=== PATIENT | male | born 1955 | race Caucasian/White ===

== ENCOUNTER 2021-01-30 11:30 | Outpatient (CLI) | payer MEDICAID, SELFPAY ==
[2021-01-30 13:53] LABS: Absolute Basophil Count 0.04 10^3/uL (0.0-0.2); Absolute Eosinophil Count 0.02 10^3/uL (0.0-0.7); Absolute Lymphocyte Count 1.16 10^3/uL (1.2-3.4); Absolute Monocyte Count 0.78 10^3/uL (0.1-0.8); Absolute Neutrophil Count 1.14 10^3/uL (1.2-6.7); Basophils % 1.3; Eosinophils % 0.6; HCT 43.7 % (40.0-50.0); HGB 14.8 g/dL (13.5-17.5); Lymphocytes % 36.9; MCH 28.1 pg (27.0-33.0); MCHC 33.9 % (32.0-36.0); MCV 83.1 fL (80-95); MPV 10.5 fL (8.0-11.0); Monocytes % 24.8; Neutrophils % 36.4; Nucleated RBC 0 %; Platelet Count 118 10^3/uL (130-400); RBC 5.26 10^6/uL (4.36-5.78); RDW 12.9 % (11.8-14.1); RDW-SD 38.8 fL; WBC 3.14 10^3/uL (4.4-10.8)
== END 2021-01-30 11:31 | disposition home or self-care (01) ==
LOC: LBO 11:33
PROVIDERS: Visit Provider Internal Medicine
DX: D69.6 Thrombocytopenia, unspecified (principal); M79.10 Myalgia, unspecified site; D70.9 Neutropenia, unspecified
CPT/HCPCS: 36415; 85025

== ENCOUNTER 2021-04-18 02:20 | Outpatient (CLI) | payer MEDICAID, SELFPAY ==
--- OUTSIDE RECORDS SUMMARY | 2021-04-18 02:23 | XMS_ITS ---
:1955 Author Care Team Providers Name Role Phone MAHENDRA DANELLE KUO Primary Care Provider [phone] MARCELO DOTSON MD [place] [phone] Allergies Code Code System Name Reaction Severity Status Onset NKDA ? Medications Name Status Start Date Stop Date ? ? amoxicillin 875 mg tablet Completed 04/24/20112010 1 (one) Tablet: two times daily cephalexin 500 mg tablet Completed 09/17/2016 017 1 (one) Tablet Tablet: four times daily chlorthalidone 25 mg tablet Completed ? 06/2020 Take 1 tablet every day by oral route for 90 days. cyclobenzaprine 10 mg tablet Completed ? dexamethasone 4 mg tablet Completed ? 2020 Take 10 tablets every day by oral route. Flovent HFA 110 mcg/actuation aerosol inhaler Completed 02/22/2014 2 (two) Aerosol: bid - twice daily gabapentin 300 mg capsule Completed ? 2019 Take 1 capsule 3 times a day by oral route as directed for 30 d ays. hydrocodone 5 mg-acetaminophen 325 mg tablet Completed 07/201610/29/2016 1 (one) Tablet Tablet: every four to six hours as needed indomethacin 25 mg capsule Completed 04/27/201501/17 1 (one) Capsule: three times daily, as needed lorazepam 1 mg tablet Completed ? 01/18/2020 Take 1 tablet every day by oral route as needed for 7 days. metoprolol tartrate 25 mg tablet Completed ? 01/18/2020 Take 2 tablets twice a day by oral route for 30 days. Thisis to help prevent migraines- not t o treat migraines. Should be taken every day regardless of migraine being present or not. naproxen 500 mg tablet Completed ? 0 Take 1 tablet twice a day by oral route for 30 days. Neulasta Active ? Not available prednisone 20 mg tablet Completed 01/18/2016 01/25/20 16 3 (three) Tablet: daily prednisone 50 mg tablet Completed ? 12/30/19 19 Take 1 tablet every day by oral route for 5 days. Rituxan Active ? Not available sumatriptan Completed ? 08/15/2020 sumatriptan 85 mg-naproxen 500 Completed ? 0 12/14/2019 mg tablet tramadol 50 mg tablet Completed 10/29/2016 05/21/2017 1-2 Tablet: q 6 hours prn pain Problems Name Status Onset Date Source ? Headache Active 12/21/2019 ? Thrombocytopenic Disorder Active 08/15/2020 ? Neutropenia Active 08/15/2020 ? Obesity Active ? History Acute Frontal Sinusitis Unknown ? History Acute Laryngitis Unknown ? History Epidermoid Cyst of Skin Active ? History Arthropathy Active ? History Backache Unknown ? History Lack of Energy Unknown ? History Dyspnea Unknown ? History Elevated Blood-pressure Reading Active ? History without Diagnosis of Hypertension Loan Foreclosure Status Unknown ? History Head and Neck Swelling Unknown ? History Pain in Right Foot Active ? History Long-term Current Use of Drug Therapy Unknown ? History Procedure by Method Unknown ? History Knee Pain Active ? History Procedures Date Name Performed by ? ? Knee Surgery Information not rohini erickson Notes: left 06/30/2018 MRI, Lumbar Spine, W/o Contrast [facility] [address] [facility] [address] [place] [phone] (Work Place) 01/24/2020 MRI, Cervical Spine, W/o Contrast [facility] [address] [facility] [address] [place] [phone] (Work Place) Results Lab Results Date Name Specimen Result Interpretation Description Value Range Status Address ? 02/13/2021 HbA1C BLD ? Ha1C 5.3 % 4.0-6.0 % Final [facility] (Hemoglobin Count ry a1C), Blood Hospi ernie Lab (Internal) : [address] 02/13/2021 BMP, Serum or S ? g/r 102 74-106 Final [facility] Plasma mg/dL mg/dL [facility] L ab (Internal) : [address] ? ? S High Bun 21 mg/dL 7-18 Final [facility] mg/dL [facility] L ab (Internal) : [address] ? ? S ? Crea 0.9 0.7-1.3 Final [facility] mg/dL mg/dL [facility] ([facility]) : [address] ? ? S ? Ca 8.9 8.5-10.1 Final [facility] mg/dL mg/dL [facility] (Internal) : [address] t ? ? S ? Na 142 136-145 Final [facility] mmol/L mmol/L [facility] (Internal) : [address] t ? ? S ? K 4.5 3.5-5.1 Final [facility] mmol/L mmol/L [facility] (Internal) : [address] t ? ? S ? Cl 106 98-107 Final [facility] mmol/l mmol/l [facility] (Internal) : [address] ? ? S ? Tco2 27.1 21.0-32.0 Final [facility] mmol/L mmol/L [facility] (Internal) : [address] t 02/13/2021 Glucose, S ? Fbs 102 74-106 Final Nort h Fasting, mg/dL mg/dL [facility] Serum/plasma Hosp ital Lab (Internal) : [address] 02/13/2021 Glucose S ? Gluc, 2 111 ? Final [place] [facility] Tolerance Test, hr Pp mg/dL C ountry Postprandial, Hos pital Lab 2-Hour (Internal) : [address] t 01/02/2021 CBC W/ Auto Diff BLD ? Wbc 7.1 5.0-10.0 F inal [place] 10*3/uL 10*3/uL [facility] (Internal) : [address] t ? ? BLD ? Rbc 5.11 4.60-6.00 Final [facility] 10*6/uL 10*6/uL [facility] (Internal) : [address] t ? ? BLD ? Hgb 14.7 14.0-18.0 Final [place] g/dL g/dL [facility] (Internal) : [address] ? ? BLD ? Hct 44.8 % 41.0-51.0 Final [facility] % [facility] (Internal) : [address] ? ? BLD ? Mcv 87.7 fL 80.0-96.0 Final [facility] L ab (Internal) : [address] ? ? BLD ? Mch 28.8 pg 26.0-32.0 Final [place] pg [facility] L ab (Internal) : [address] ? ? BLD ? Mchc 32.8 31.0-35.0 Final [place] g/dL g/dL [facility] L ab (Internal) : [address] ? ? BLD ? Rdw 13.5 % 11.5-14.5 Final [facility] L ab (Internal) : [address] ? ? BLD ? Plt 241 130-450 Final [place] 10*3/uL 10*3/uL [facility] L ab (Internal) : [address] 01/02/2021 Differential, BLD ? Polys 65 % 40-75 % Final [facility], Blood [facility] L ab (Internal) : [address] ? ? BLD ? Bands 0 % 0-5 % Final [facility] L ab (Internal) : [address] ? ? BLD Low Lymphs 18 % 20-50 % Final [facility] L ab (Internal) : [address] ? ? BLD High [place] 16 % 2-10 % Final [facility] L ab (Internal) : [address] ? ? BLD ? Eos 1 % 0-6 % Final [facility] L ab (Internal) : [address] ? ? BLD ? Baso 0 % 0-1 % Final [facility] L ab (Internal) : [address] ? ? BLD ? Atyp 0 % ? Final [facility] L ab (Internal) : [address] ? ? BLD ? Plts, adequate adequate Final [place] [facility] [address] ? ? BLD ? RBC normal normal Final [place] [facility] (Internal) : [address] 01/02/2021 Neutrophil BLD ? Anc-manu 4.60 ? Final [place] Count, Absolute al 10*3/uL [facility] (Anc), Blood Hosp ital Lab (Internal) : [address] 01/02/2021 Nlr-manual BLD High Nlr - 3.61 0.00-3.20 Final [facility] L ab (Internal) : [address] 11/13/2020 CBC W/ Auto Diff BLD Low Wbc 2.2 5.0-10.0 F inal [place] 10*3/uL 10*3/uL [facility] L ab (Internal) : [address] t ? ? BLD ? Rbc 5.26 4.60-6.00 Final [place] 10*6/uL 10*6/uL [facility] L ab (Internal) : [address] ? ? BLD ? Hgb 14.8 14.0-18.0 Final [place] g/dL g/dL [facility] (Internal) : [address] ? ? BLD ? Hct 44.0 % 41.0-51.0 Final [facility] : [address] ? ? BLD ? Mcv 83.7 fL 80.0-96.0 Final [facility] L ab (Internal) : [address] t ? ? BLD ? Mch 28.1 pg 26.0-32.0 Final [facility] L ab (Internal) : [address] ? ? BLD ? Mchc 33.6 31.0-35.0 Final [place] g/dL g/dL [facility] L ab (Internal) : [address] ? ? BLD ? Rdw 11.9 % 11.5-14.5 Final [facility] ([facility] : [address] ? ? BLD Low Plt 126 130-450 Final [place] 10*3/uL 10*3/uL [facility] L ab (Internal) : [address] 11/13/2020 CMP, Serum or S High g/r 117 74-106 Final [place] Plasma mg/dL mg/dL [facility] L ab (Internal) : [address] ? ? S ? Bun 17 mg/dL 9-20 Final [facility] mg/dL [facility] ([facility]) : [address] t ? ? S ? Crea 0.90 0.66-1.25 Final [place] mg/dL mg/dL [facility] (Internal) : [address] t ? ? S ? Ca 9.6 8.4-10.2 Final [place] mg/dL mg/dL [facility] (Internal) : [address] t ? ? S ? Na 138 137-145 Final [place] mmol/L mmol/L [facility] (Internal) : [address] t ? ? S ? K 4.2 3.5-5.1 Final [place] mmol/L mmol/L [facility] (Internal) : [address] t ? ? S ? Cl 104 98-107 Final [place] mmol/L mmol/L [facility] (Internal) : [address] t ? ? S ? Tco2 25.0 22.0-30.0 Final [place] mmol/L mmol/L [facility] (Internal) : [address] t ? ? S ? Tp 7.3 g/dL 6.3-8.2 Final [facility] g/dL [facility] (Internal) : [address] t ? ? S ? Alb 3.9 g/dL 3.5-5.0 Final [facility] g/dL [facility] (Internal) : [address] t ? ? S ? Tbil 0.8 0.2-1.3 Final [place] mg/dL mg/dL [facility] (Internal) : [address] ? ? S ? Alp 60 U/L 38-126 Final [facility] U/L [facility] (Internal) : [address] ? ? S Low Alt 18 U/L 21-72 U/L Final [facility] (Sgpt) [facility] (Internal) : [address] ? ? S ? Ast 23 U/L 17-59 U/L Final [facility] (Sgot) [facility] (Internal) : [address] 11/13/2020 Lipase, Serum or S ? Lip 84 U/L 23-300 Fin [facility] Plasma U/L [facility] L ab (Internal) : [address] t 11/13/2020 Differential, BLD Low Polys 5 % 40-75 % Final [facility] Blood [facility] L ab (Internal) : [address] t ? ? BLD ? Bands 2 % 0-5 % Final [facility] L ab (Internal) : [address] t ? ? BLD ? Lymphs 36 % 20-50 % Final [facility] L ab (Internal) : [address] ? ? BLD High [place] 54 % 2-10 % Final [facility] L ab (Internal) : [address] ? ? BLD ? Eos 0 % 0-6 % Final [facility] L ab (Internal) : [address] ? ? BLD High Baso 2 % 0-1 % Final [facility] L ab (Internal) : [address] ? ? BLD ? Atyp 1 % ? Final [facility] L ab (Internal) : [address] ? ? BLD ABNORM Plts, low adequate Final [facility] L ab (Internal) : [address] ? ? BLD ? RBC normal normal [facility] L ab (Internal[facility] : [address] 11/13/2020 Nlr-manual BLD ? Nlr - 0.19 0.00-3.20 Final [facility] L ab (Internal) : [address] t 11/13/2020 Neutrophil BLD CRITIC Anc-manu 0.15 ? Final [place] Count, Absolute AL LOW al 10*3/uL [facility] (Anc), Blood Hosp ital Lab (Internal) : [address] t 11/13/2020 Venipuncture Blood ? Location Right ? ? P_nc Primary venous Antecubi Care ernie [place]: [address], [place] ? ? Blood ? Needle 21g ? ? P_nc Prim mario venous Vacutain Care er [place]: [address], [place] ? ? Blood ? Number 1 ? ? P_nc Prim mario venous of Care Attempts [place]: [address] [facility], [place] ? ? Blood ? Successf Yes ? ? P_nc Pr imary venous ul Care [place]: [address] [facility], [place] ? ? Blood ? Dressing Pressure ? ? P_nc Primary venous Band-aid Care Applied [place]: [address] [facility], [place] 08/22/2020 CBC W/ Auto Diff BLD ? Wbc 9.1 5.0-10.0 F inal [place] 10*3/uL 10*3/uL [facility] L ab (Internal) : [address] ? ? BLD ? Rbc 5.21 4.60-6.00 Final [place] 10*6/uL 10*6/uL [facility] L ab (Internal) : [address] t ? ? BLD ? Hgb 15.1 14.0-18.0 Final [place] g/dL g/dL [facility] L ab (Internal) : [address] t ? ? BLD ? Hct 45.9 % 41.0-51.0 Final [facility] : [address] t ? ? BLD ? Mcv 88.1 fL 80.0-96.0 Final [facility] L ab (Internal) : [address] ? ? BLD ? Mch 29.0 pg 26.0-32.0 Final [facility] L ab (Internal) : [address] t ? ? BLD ? Mchc 32.9 31.0-35.0 Final [place] g/dL g/dL [facility] L ab (Internal) : [address] t ? ? BLD ? Rdw 12.9 % 11.5-14.5 Final [facility] (Internal) : [address] t ? ? BLD Low Plt 86 130-450 Final [place] 10*3/uL 10*3/uL [facility] L ab (Internal) : [address] ? ? BLD ? Anc 5.92 ? Final [place] 10*3/uL [facility] L ab (Internal) : [address] t ? ? BLD High Nlr 3.29 0.00-3.20 Final [facility] L ab (Internal) : [address] t ? ? BLD ? Neutro 65.2 % 40.0-75.0 Final [facility] ([facility]) : [address] ? ? BLD Low Lymph 19.8 % 20.0-50.0 Final [facility] (Internal) : [address] ? ? BLD High [place] 11.5 % 2.0-10.0 Final [facility] (Internal) : [address] ? ? BLD ? Eos 2.5 % 1.0-6.0 % Final [facility] L ab (Internal) : [address] t ? ? BLD ? Baso 0.4 % 0.0-1.0 % Final [facility] L ab (Internal) : [address] ? ? BLD ? Ig 0.6 % 0.0-0.9 % Final [facility] L ab (Internal) : [address] t 08/22/2020 HbA1C BLD ? Ha1C 5.3 % 4.0-6.0 % Final [facility] (Hemoglobin Count ry a1C), Blood Hospi ernie Lab (Internal) : [address] 08/08/2020 CBC W/ Auto Diff BLD ? Wbc 5.0 5.0-10.0 F inal [place] 10*3/uL 10*3/uL [facility] L ab (Internal) : [address] t ? ? BLD ? Rbc 5.36 4.60-6.00 Final [place] 10*6/uL 10*6/uL [facility] L ab (Internal) : [address] t ? ? BLD ? Hgb 15.4 14.0-18.0 Final [place] g/dL g/dL [facility] L ab (Internal) : [address] t ? ? BLD ? Hct 45.4 % 41.0-51.0 Final [facility] ([facility]) : [address] ? ? BLD ? Mcv 84.7 fL 80.0-96.0 Final [facility] L ab (Internal) : [address] ? ? BLD ? Mch 28.7 pg 26.0-32.0 Final [place] pg [facility] L ab (Internal) : [address] ? ? BLD ? Mchc 33.9 31.0-35.0 Final [place] g/dL g/dL [facility] L ab (Internal) : [address] ? ? BLD ? Rdw 12.5 % 11.5-14.5 Final [facility] L ab (Internal) : [address] ? ? BLD CRITIC Plt 23 130-450 Final [place] AL LOW 10*3/uL 10*3/uL [facility] L ab (Internal) : [address] 08/08/2020 Differential, BLD ? Polys 51 % 40-75 % Final [facility], Blood [facility] L ab (Internal) : [address] ? ? BLD ? Bands 0 % 0-5 % Final [facility] L ab (Internal) : [address] ? ? BLD ? Lymphs 22 % 20-50 % Final [facility] L ab (Internal) : [address] ? ? BLD High [place] 11 % 2-10 % Final [facility] L ab (Internal) : [address] ? ? BLD High Eos 8 % 0-6 % Final [facility] L ab (Internal) : [address] ? ? BLD ? Baso 1 % 0-1 % Final [facility] L ab (Internal) : [address] ? ? BLD ? Atyp 7 % ? Final [facility] L ab (Internal) : [address] ? ? BLD ABNORM Plts, low adequate Final [facility] Est. [facility] L ab (Internal) : [address] ? ? BLD ? RBC normal normal Final [facility] Hospital L ab (Internal) : [address] 08/08/2020 Neutrophil BLD ? Anc-manu 2.55 ? Final [place] Count, Absolute al 10*3/uL [facility] (Anc), Blood Hosp ital Lab (Internal) : [address] t 08/08/2020 Nlr-manual BLD ? Nlr - 2.32 0.00-3.20 Final [facility] L ab (Internal) : [address] 08/06/2020 Differential, BLD ? Polys 46 % 40-75 % Final [facility] Blood [facility] L ab (Internal) : [address] ? ? BLD ? Bands 0 % 0-5 % Final [facility] ab (Internal) : [address] ? ? BLD ? Lymphs 34 % 20-50 % Final [facility] ab (Internal) : [address] ? ? BLD High [place] 18 % 2-10 % Final [facility] ab (Internal) : [address] ? ? BLD ? Eos 2 % 0-6 % Final [facility] ab (Internal) : [address] t ? ? BLD ? Baso 0 % 0-1 % Final [facility] ab (Internal) : [address] ? ? BLD ? Atyp 0 % ? Final [facility] ab (Internal) : [address] t ? ? BLD ABNORM Plts, low adequate Final [place] Est. [facility] ab (Internal) : [address] t ? ? BLD ? RBC normal normal Final [place] Morpholog [facility] L ab (Internal) : [address] ? ? BLD ? Giant rare ? Final [place] Plt [facility] ab (Internal) : [address] 08/06/2020 Neutrophil BLD ? Anc-manu 2.10 ? Final [place] Count, Absolute al 10*3/uL [facility] (Anc), Blood Hosp ital Lab (Internal) : [address] 08/06/2020 Nlr-manual BLD ? Nlr - 1.35 0.00-3.20 Final [facility] ab (Internal) : [address] t 08/06/2020 CBC W/ Auto Diff BLD Low Wbc 4.6 5.0-10.0 F inal [place] 10*3/uL 10*3/uL [facility] L ab (Internal) : [address] ? ? BLD ? Rbc 5.21 4.60-6.00 Final [place] 10*6/uL 10*6/uL [facility] L ab (Internal) : [address] ? ? BLD ? Hgb 14.6 14.0-18.0 Final [place] g/dL g/dL [facility] L ab (Internal) : [address] ? ? BLD ? Hct 43.8 % 41.0-51.0 Final [facility] (Internal) : [address] ? ? BLD ? Mcv 84.1 fL 80.0-96.0 Final [facility] L ab (Internal) : [address] ? ? BLD ? Mch 28.0 pg 26.0-32.0 Final [facility] L ab (Internal) : [address] ? ? BLD ? Mchc 33.3 31.0-35.0 Final [place] g/dL g/dL [facility] L ab (Internal) : [address] ? ? BLD ? Rdw 12.3 % 11.5-14.5 Final [facility] (Internal) : [address] ? ? BLD CRITIC Plt 24 130-450 Final [place] LOW 10*3/uL 10*3/uL [facility] L ab (Internal) : [address] 08/06/2020 Pathology BLD ? Smear see ? Final [place] Review, Smear Review comment Co [facility] L ab (Internal) : [address] 08/03/2020 CBC W/ Auto Diff BLD Low Wbc 4.5 5.0-10.0 F inal [place] 10*3/uL 10*3/uL [facility] L ab (Internal) : [address] ? ? BLD ? Rbc 5.31 4.60-6.00 Final [place] 10*6/uL 10*6/uL [facility] (Internal) : [address] ? ? BLD ? Hgb 14.9 14.0-18.0 Final [place] g/dL g/dL [facility] L ab (Internal) : [address] ? ? BLD ? Hct 45.3 % 41.0-51.0 Final [facility] L ab (Internal) : [address] ? ? BLD ? Mcv 85.3 fL 80.0-96.0 Final [facility] L ab (Internal) : [address] ? ? BLD ? Mch 28.1 pg 26.0-32.0 Final [facility] L ab (Internal) : [address] ? ? BLD ? Mchc 32.9 31.0-35.0 Final [place] g/dL g/dL [facility] L ab (Internal) : [address] ? ? BLD ? Rdw 12.5 % 11.5-14.5 Final [facility] (Internal) : [address] t ? ? BLD CRITIC Plt 26 130-450 Final [place] LOW 10*3/uL 10*3/uL [facility] L ab (Internal) : [address] 08/03/2020 Differential, BLD ? Polys 47 % 40-75 % Final [facility] L ab (Internal) : [address] ? ? BLD ? Bands 0 % 0-5 % Final [facility] L ab (Internal) : [address] ? ? BLD ? Lymphs 29 % 20-50 % Final [facility] L ab (Internal) : [address] ? ? BLD High [place] 18 % 2-10 % Final [facility] L ab (Internal) : [address] ? ? BLD ? Eos 6 % 0-6 % Final [facility] L ab (Internal) : [address] ? ? BLD ? Baso 0 % 0-1 % Final [facility] L ab (Internal) : [address] ? ? BLD ? Atyp 0 % ? Final [facility] L ab (Internal) : [address] ? ? BLD ABNORM Plts, low adequate Final [place] [facility] (Internal) : [address] ? ? BLD ? RBC normal normal Final [place] Morpholog [facility] L ab (Internal) : [address] 08/03/2020 Neutrophil BLD ? Anc-manu 2.11 ? Final [place] Count, Absolute al 10*3/uL [facility] (Anc), Blood Hosp ital Lab (Internal) : [address] 08/03/2020 Nlr-manual BLD ? Nlr - 1.62 0.00-3.20 Final [place] Manual [facility] L ab (Internal) : [address] 08/02/2020 Lipid Panel, S ? Chol 192 50-200 Final [place] Serum mg/dL mg/dL [facility] L ab (Internal) : [address] ? ? S ? Trig 93 mg/dL 10-150 Final [place] mg/dL [facility] L ab (Internal) : [address] ? ? S ? Hdl 40 mg/dL 40-60 Final [place] mg/dL [facility] L ab (Internal) : [address] ? ? S High Ldl 133 0-130 Final [place] mg/dL mg/dL [facility] L ab (Internal) : [address] 08/02/2020 Neutrophil BLD ? Anc-manu 1.62 ? Final [place] Count, Absolute al 10*3/uL [facility] (Anc), Blood Hosp ital Lab (Internal) : [address] 08/02/2020 CBC W/ Auto Diff BLD Low Wbc 4.2 5.0-10.0 F inal [place] 10*3/uL 10*3/uL [facility] L ab (Internal) : [address] ? ? BLD ? Rbc 5.60 4.60-6.00 Final [place] 10*6/uL 10*6/uL [facility] L ab (Internal) : [address] ? ? BLD ? Hgb 15.8 14.0-18.0 Final [place] g/dL g/dL [facility] L ab (Internal) : [address] [place] ? ? BLD ? Hct 47.5 % 41.0-51.0 Final [facility] L ab (Internal) : [address] ? ? BLD ? Mcv 84.8 fL 80.0-96.0 Final [facility] L ab (Internal) : [address] ? ? BLD ? Mch 28.2 pg 26.0-32.0 Final [place] pg [facility] L ab (Internal) : [address] [place] ? ? BLD ? Mchc 33.3 31.0-35.0 Final [place] g/dL g/dL [facility] L ab (Internal) : [address] [place] ? ? BLD ? Rdw 12.4 % 11.5-14.5 Final [facility] L ab (Internal) : [address] ? ? BLD CRITIC Plt 28 130-450 Final [place] LOW 10*3/uL 10*3/uL [facility] L ab (Internal) : [address] 08/02/2020 Differential, BLD Low Polys 39 % 40-75 % Final [facility], Blood [facility] L ab (Internal) : [address] [place] ? ? BLD ? Bands 0 % 0-5 % Final [facility] L ab (Internal) : [address] [place] ? ? BLD ? Lymphs 37 % 20-50 % Final [facility] L ab (Internal) : [address] ? ? BLD High [place] 18 % 2-10 % Final [facility] L ab (Internal) : [address] [place] ? ? BLD ? Eos 5 % 0-6 % Final [facility] L ab (Internal) : [address] [place] ? ? BLD ? Baso 1 % 0-1 % Final [facility] L ab (Internal) : [address] [place] ? ? BLD ? Atyp 0 % ? Final [facility] L ab (Internal) : [address] ? ? BLD ABNORM Plts, low adequate Final [place] Est. [facility] L ab (Internal) : [address] ? ? BLD ABNORM RBC abnormal normal Final [place] [facility] (Internal) : [address] ? ? BLD ? Giant occasion ? Final [place] Plt al [facility] L ab (Internal) : [address] 08/02/2020 Nlr-manual BLD ? Nlr - 1.05 0.00-3.20 Final [place] Manual [facility] L ab (Internal) : [address] 04/24/2020 Pathology Study TISS ? Report (see ? Govind Bhatt below) [facility] ab (Internal) : [address] 01/25/2020 Venipuncture ? Location Right ? ? P_nc Primary Antecubi Care ernie [place] ns: [address], [place] ? ? ? Needle 21g ? ? P_nc Prim mario Vacutain Care er [place] ns: [address], [place] ? ? ? Number 1 ? ? P_nc Prim mario of Care Attempts [place] ns: [address], [place] ? ? ? Successf Yes ? ? P_nc Pr imary ul Care [place]: [address], [place] ? ? ? Dressing Pressure ? ? P_nc Primary Band-aid Care Applied [place] ns: [address], [place] ? ? ? Initials reina ? ? P_nc Pr imary Care [place]: [address], [place] 01/24/2020 CRP, High S High Rcrp 0.45 0.10-0.30 [facility] Sensitivity, mg/dL mg/dL Coun try Serum or Plasma H ospital Lab (Internal) : [address] 01/24/2020 ESR (Erythrocyte BLD ? Esr 10 mm/h 0-20 mm/h Final [place] Sedimentation Cou ntry Rate), Blood Hosp ital Lab (Internal) : [address] 01/24/2020 Protein S ? Total 6.8 g/dL 6.3-8.2 Final No rth Electrophoresis Protein g/dL Country Panel, Serum or H ospital Lab Plasma (Internal) : [address] ? ? S ? Albumin 60.0 % 55.8-66.1 Final [facility] L ab (Internal) : [address] ? ? S ? Alpha 1 4.7 % 2.9-4.9 % Final [facility] L ab (Internal) : [address] ? ? S ? Alpha 2 10.6 % 7.1-11.8 Final [facility] L ab (Internal) : [address] ? ? S ? Beta 10.6 % 8.4-13.1 Final [facility] L ab (Internal) : [address] ? ? S ? Gamma 14.1 % 11.1-18.8 Final [facility] L ab (Internal) : [address] ? ? S ? Comments no ? Final [facility] Lab al (Internal) : protein 189 Any y seen on Mick Jha rt serum electrop horesis 12/06/2019 CBC W/ Auto Diff BLD Low Wbc 3.9 5.0-10.0 F inal [place] 10*3/uL 10*3/uL [facility] L ab (Internal) : [address] ? ? BLD ? Rbc 5.54 4.60-6.00 Final [place] 10*6/uL 10*6/uL [facility] L ab (Internal) : [address] ? ? BLD ? Hgb 16.1 14.0-18.0 Final [place] g/dL g/dL [facility] L ab (Internal) : [address] ? ? BLD ? Hct 46.9 % 41.0-51.0 Final [facility] L ab (Internal) : [address] ? ? BLD ? Mcv 84.7 fL 80.0-96.0 Final [facility] L ab (Internal) : [address] ? ? BLD ? Mch 29.1 pg 26.0-32.0 Final [facility] L ab (Internal) : [address] ? ? BLD ? Mchc 34.3 31.0-35.0 Final [place] g/dL g/dL [facility] L ab (Internal) : [address] ? ? BLD ? Rdw 12.2 % 11.5-14.5 Final [facility] L ab (Internal) : [address] t ? ? BLD Low Plt 53 130-450 Final [place] 10*3/uL 10*3/uL [facility] L ab (Internal) : [address] 12/06/2019 Differential, BLD ? Polys 41 % 40-75 % Final [facility], Blood [facility] L ab (Internal) : [address] t ? ? BLD ? Bands 0 % 0-5 % Final [facility] L ab (Internal) : [address] t ? ? BLD ? Lymphs 35 % 20-50 % Final [facility] L ab (Internal) : [address] t ? ? BLD High [place] 15 % 2-10 % Final [facility] L ab (Internal) : [address] t ? ? BLD High Eos 7 % 0-6 % Final [facility] L ab (Internal) : [address] t ? ? BLD High Baso 2 % 0-1 % Final [facility] L ab (Internal) : [address] t ? ? BLD ? Atyp 0 % ? Final [facility] L ab (Internal) : [address] t ? ? BLD ABNORM Plts, low adequate Final [facility] Est. [facility] L ab (Internal) : [address] t ? ? BLD ABNORM RBC abnormal normal Final [facility] (Internal) : [address] t ? ? BLD ? Smudge rare ? Final [facility] L ab (Internal) : [address] 12/06/2019 Neutrophil BLD ? Anc-manu 1.59 ? Final [place] Count, Absolute al 10*3/uL [facility] (Anc), Blood Hosp ital Lab (Internal) : [address] 12/06/2019 Nlr-manual BLD ? Nlr - 1.17 0.00-3.20 Final [facility] L ab (Internal) : [address] 12/06/2019 PSA, Serum or S ? PSA Scrn 1.5 0.0-4.0 Fi nal [place] Plasma NG/mL NG/mL [facility] L ab (Internal) : [address] 11/23/2019 CBC W/ Auto Diff BLD Low Wbc 4.0 5.0-10.0 F inal [place] 10*3/uL 10*3/uL [facility] L ab (Internal) : [address] ? ? BLD ? Rbc 5.54 4.60-6.00 Final [place] 10*6/uL 10*6/uL [facility] L ab (Internal) : [address] ? ? BLD ? Hgb 16.1 14.0-18.0 Final [place] g/dL g/dL [facility] L ab (Internal) : [address] ? ? BLD ? Hct 46.6 % 41.0-51.0 Final [facility] L ab (Internal) : [address] ? ? BLD ? Mcv 84.1 fL 80.0-96.0 Final [facility] L ab (Internal) : [address] ? ? BLD ? Mch 29.1 pg 26.0-32.0 Final [place] pg [facility] L ab (Internal) : [address] ? ? BLD ? Mchc 34.5 31.0-35.0 Final [place] g/dL g/dL [facility] L ab (Internal) : [address] ? ? BLD ? Rdw 12.2 % 11.5-14.5 Final [facility] L ab (Internal) : [address] ? ? BLD Low Plt 74 130-450 Final [place] 10*3/uL 10*3/uL [facility] L ab (Internal) : [address] 11/23/2019 Differential, BLD Low Polys 29 % 40-75 % Final [facility] Blood [facility] L ab (Internal) : [address] ? ? BLD ? Bands 0 % 0-5 % Final [facility] L ab (Internal) : [address] ? ? BLD ? Lymphs 40 % 20-50 % Final [facility] L ab (Internal) : [address] t ? ? BLD High [place] 30 % 2-10 % Final [facility] L ab (Internal) : [address] t ? ? BLD ? Eos 1 % 0-6 % Final [facility] L ab (Internal) : [address] t ? ? BLD ? Baso 0 % 0-1 % Final [facility] L ab (Internal) : [address] t ? ? BLD ? Atyp 0 % ? Final [facility] L ab (Internal) : [address] t ? ? BLD ABNORM Plts, low adequate Final [facility]. [facility] L ab (Internal) : [address] t ? ? BLD ? RBC normal normal Final [facility] L ab (Internal) : [address] t ? ? BLD ? Smudge occasion ? Final [facility] L ab (Internal) : [address] t 11/23/2019 Neutrophil BLD ? Anc-manu 1.15 ? Final [place] Count, Absolute al 10*3/uL [facility] (Anc), Blood Hosp ital Lab (Internal) : [address] t 11/23/2019 Nlr-manual BLD ? Nlr - 0.73 0.00-3.20 Final [facility] L ab (Internal) : [address] 11/16/2019 CBC W/ Auto Diff BLD Low Wbc 3.7 5.0-10.0 F inal [place] 10*3/uL 10*3/uL [facility] L ab (Internal) : [address] t ? ? BLD ? Rbc 5.65 4.60-6.00 [facility] 10*6/uL 10*6/uL [facility] L ab (Internal) : [address] t ? ? BLD ? Hgb 16.4 14.0-18.0 [facility] g/dL g/dL [facility] L ab (Internal) : [address] ? ? BLD ? Hct 47.3 % 41.0-51.0 Final [facility] L ab (Internal) : [address] t ? ? BLD ? Mcv 83.7 fL 80.0-96.0 Final [facility] L ab (Internal) : [address] ? ? BLD ? Mch 29.0 pg 26.0-32.0 Final [place] pg [facility] L ab (Internal) : [address] ? ? BLD ? Mchc 34.7 31.0-35.0 Final [place] g/dL g/dL [facility] L ab (Internal) : [address] t ? ? BLD ? Rdw 12.3 % 11.5-14.5 Final [facility] L ab (Internal) : [address] t ? ? BLD Low Plt 84 130-450 Final [place] 10*3/uL 10*3/uL [facility] L ab (Internal) : [address] 11/16/2019 Differential, BLD Low Polys 35 % 40-75 % Final [place] Manual, Blood Cou [facility] L ab (Internal) : [address] t ? ? BLD ? Bands 0 % 0-5 % Final [facility] L ab (Internal) : [address] t ? ? BLD ? Lymphs 35 % 20-50 % Final [facility] L ab (Internal) : [address] t ? ? BLD High [place] 27 % 2-10 % Final [facility] L ab (Internal) : [address] ? ? BLD ? Eos 1 % 0-6 % Final [facility] L ab (Internal) : [address] t ? ? BLD High Baso 2 % 0-1 % Final [facility] L ab (Internal) : [address] t ? ? BLD ? Atyp 0 % ? Final [facility] L ab (Internal) : [address] ? ? BLD ABNORM Plts, low adequate Final [facility] [address] t ? ? BLD ? RBC normal normal Final [facility] L ab (Internal) : [address] 11/16/2019 Neutrophil BLD ? Anc-manu 1.30 ? Final [place] Count, Absolute al 10*3/uL [facility] (Anc), Blood Hosp ital Lab (Internal) : [address] t 11/16/2019 Nlr-manual BLD ? Nlr - 1.00 0.00-3.20 Final [place] Manual [facility] L ab (Internal) : [address] t 11/16/2019 Venipuncture Blood ? Location Right ? ? P_nc Primary venous Antecubi Care ernie [place]: [address], [place] ? ? Blood ? Needle 21g ? ? P_nc Prim mario venous Vacutain Care er [place]: [address], [place] ? ? Blood ? Number 1 ? ? P_nc Prim mario venous of Care Attempts [place] ns: [address], [place] ? ? Blood ? Successf Yes ? ? P_nc Pr imary venous ul Care [place]: [address], [place] ? ? Blood ? Dressing Pressure ? ? P_nc Primary venous Band-aid Care Applied [place] ns: [address], [place] 11/16/2019 Venipuncture Blood ? Location Right ? ? P_nc Primary venous Antecubi Care ernie [place]: [address], [place] ? ? Blood ? Needle 21g ? ? P_nc Prim mario venous Vacutain Care er [place] ns: [address], [place] ? ? Blood ? Number 1 ? ? P_nc Prim mario venous of Care Attempts [place] ns: [address], [place] ? ? Blood ? Successf Yes ? ? P_nc Pr imary venous ul Care [place]: [address], [place] ? ? Blood ? Dressing Pressure ? ? P_nc Primary venous Band-aid Care Applied [place] ns: [address], [place] 11/11/2019 HbA1C BLD ? Ha1C 5.4 % 4.0-6.0 % Final [facility] th (Hemoglobin Count ry a1C), Blood Hospi ernie Lab (Internal) : [address] t 11/11/2019 Thyroid Burke, S ? Tsh 2.94 0.47-4.68 Final [place] Serum u[IU]/mL u[IU]/mL [facility] L ab (Internal) : [address] 11/10/2019 Urinalysis, UR ? UA-color yellow pale Final [place] Dipstick, Reflex yellow [facility] L ab (Internal) : [address] t ? ? UR ? UA-appea clear clear Final [facility] L ab (Internal) : [address] t ? ? UR ? UA-spec 1.025 1.003-1.0 Final [place] Grav 35 [facility] L ab (Internal) : [address] t ? ? UR ? UA-pH 6.5 [pH] 4.6-8.0 Final [place] [pH] [facility] ab (Internal) : [address] t ? ? UR ? UA-leuk negative negative Final [facility] L ab (Internal) : [address] t ? ? UR ? UA-nitri negative negative Final [facility] L ab (Internal) : [address] t ? ? UR ? UA-prot negative negative Final [facility] L ab (Internal) : [address] t ? ? UR ? UA-gluc negative negative Final [facility] ab (Internal) : [address] t ? ? UR ? UA-keton negative negative Final [facility] ab (Internal) : [address] t ? ? UR ABNORM UA-urobi positive normal Final [facility] ab (Internal) : [address] t ? ? UR ? UA-bili negative negative Final [facility] ab (Internal) : [address] t ? ? UR ? UA-blood negative negative Final [facility] ab (Internal) : [address] 11/10/2019 CMP, Serum or S ? g/r 100 74-106 Final [place] Plasma mg/dL mg/dL [facility] L ab (Internal) : [address] t ? ? S High Bun 21 mg/dL 9-20 Final [place] mg/dL [facility] L ab (Internal) : [address] t ? ? S ? Crea 0.80 0.66-1.25 Final [facility] mg/dL mg/dL [facility] (Internal) : [address] t ? ? S ? Ca 8.9 8.4-10.2 Final [facility] mg/dL mg/dL [facility] L ab (Internal) : [address] t ? ? S ? Na 141 137-145 Final [facility] mmol/L mmol/L [facility] (Internal) : [address] t ? ? S ? K 4.2 3.5-5.1 Final [facility] mmol/L mmol/L [facility] (Internal) : [address] t ? ? S ? Cl 105 98-107 Final [facility] mmol/L mmol/L [facility] (Internal) : [address] t ? ? S ? Tco2 25.0 22.0-30.0 Final [facility] mmol/L mmol/L [facility] (Internal) : [address] t ? ? S ? Tp 7.5 g/dL 6.3-8.2 Final [facility] g/dL [facility] L [facility] (Internal) : [address] t ? ? S ? Alb 4.2 g/dL 3.5-5.0 Final [facility] g/dL [facility] (Internal) : [address] t ? ? S ? Tbil 0.9 0.2-1.3 Final [facility] mg/dL mg/dL [facility] L [facility] (Internal) : [address] t ? ? S ? Alp 58 U/L 38-126 Final [facility] U/L [facility] (Internal) : [address] t ? ? S ? Alt 24 U/L 21-72 U/L Final [facility] (Sgpt) [facility] (Internal) : [address] t ? ? S ? Ast 31 U/L 17-59 U/L Final [facility] (Sgot) [facility] (Internal) : [address] t 11/10/2019 CBC W/ Auto Diff BLD Low Wbc 2.7 5.0-10.0 F inal [facility] 10*3/uL 10*3/uL [facility] L ab (Internal) : [address] ? ? BLD ? Rbc 5.13 4.60-6.00 Final [place] 10*6/uL 10*6/uL [facility] L ab (Internal) : [address] ? ? BLD ? Hgb 15.1 14.0-18.0 Final [place] g/dL g/dL [facility] L ab (Internal) : [address] ? ? BLD ? Hct 43.5 % 41.0-51.0 Final [facility] L ab (Internal) : [address] ? ? BLD ? Mcv 84.8 fL 80.0-96.0 Final [facility] L ab (Internal) : [address] ? ? BLD ? Mch 29.4 pg 26.0-32.0 Final [facility] L ab (Internal) : [address] t ? ? BLD ? Mchc 34.7 31.0-35.0 Final [place] g/dL g/dL [facility] L ab (Internal) : [address] ? ? BLD ? Rdw 12.4 % 11.5-14.5 Final [facility] L ab (Internal) : [address] t ? ? BLD Low Plt 59 130-450 Final [place] 10*3/uL 10*3/uL [facility] L ab (Internal) : [address] 11/10/2019 Differential, BLD Low Polys 36 % 40-75 % Final [facility] Blood [facility] L ab (Internal) : [address] ? ? BLD ? Bands 0 % 0-5 % Final [facility] L ab (Internal) : [address] ? ? BLD ? Lymphs 27 % 20-50 % Final [facility] L ab (Internal) : [address] t ? ? BLD High [place] 24 % 2-10 % Final [facility] L ab (Internal) : [address] ? ? BLD ? Eos 6 % 0-6 % Final [facility] L ab (Internal) : [address] ? ? BLD ? Baso 0 % 0-1 % Final [facility] L ab (Internal) : [address] t ? ? BLD ? Atyp 5 % ? Final [facility] L ab (Internal) : [address] t ? ? BLD High [place] 2 % 0-0 % Final [facility] L ab (Internal) : [address] t ? ? BLD ABNORM Plts, low adequate Final [place] Est. [facility] L ab (Internal) : [address] t ? ? BLD ? RBC normal normal Final [place] Morpholog [facility] L ab (Internal) : [address] t ? ? BLD ? Giant rare ? Final [place] Plt [facility] L ab (Internal) : [address] 11/10/2019 Nlr-manual BLD ? Nlr - 1.33 0.00-3.20 Final [facility] L ab (Internal) : [address] 11/10/2019 Neutrophil BLD CRITIC Anc-manu 0.98 ? Final [place] Count, Absolute AL LOW al 10*3/uL [facility] (Anc), Blood Hosp ital Lab (Internal) : [address] 09/17/2016 Pathology Study TISS ? Report results ? Fi nal [place] below [facility] L ab (Internal) : [address] ? Venipuncture ? Location Right ? ? P _nc Primary Antecubi Care ernie [place]: [address], [place] ? ? ? Needle 21g ? ? P_nc Prim mario Vacutain Care er [place]: [address], [place] ? ? ? Number 1 ? ? P_nc Prim mario of Care Attempts [place] ns: [address], [place] ? ? ? Successf Yes ? ? P_nc Pr imary ul Care [place]: [address], [place] ? ? ? Dressing Pressure ? ? P_nc Primary Band-aid Care Applied [place] ns: [address], [place] ? ? ? Initials hj ? ? P_nc Pr imary Care [place]: [address], [place] ? Venipuncture ? Location Right ? ? P _nc Primary Antecubi Care ernie [place]: [address], [place] ? ? ? Needle 21g ? ? P_nc Prim mario Vacutain Care er [place] ns: [address], [place] ? ? ? Number 1 ? ? P_nc Prim mario of Care Attempts [place] ns: [address], [place] ? ? ? Successf Yes ? ? P_nc Pr imary ul Care [place]: [address], [place] ? ? ? Dressing Pressure ? ? P_nc Primary Band-aid Care Applied [place] ns: [address], [place] ? ? ? Initials HJ ? ? P_nc Pr imary Care [place]: [address], [place] ? Venipuncture ? Location Right ? ? P _nc Primary Antecubi Care ernie [place]: [address], [place] ? ? ? Needle 21g ? ? P_nc Prim mario Vacutain Care er [place] ns: [address], [place] ? ? ? Number 1 ? ? P_nc Prim mario of Care Attempts [place] ns: [address], [place] ? ? ? Successf Yes ? ? P_nc Pr imary ul Care [place] ns: [address], [place] ? ? ? Dressing Pressure ? ? P_nc Primary Band-aid Care Applied [place] ns: [address], [place] ? ? ? Initials hj ? ? P_nc Pr imary Care [place] ns: [address], [place] ? Venipuncture ? Location Right ? ? P _nc Primary Antecubi Care ernie [place]: [address], [place] ? ? ? Needle 21g ? ? P_nc Prim mario Vacutain Care er [place] ns: [address], [place] ? ? ? Number 1 ? ? P_nc Prim mario of Care Attempts [place] ns: [address], [place] ? ? ? Successf Yes ? ? P_nc Pr imary ul Care [place] ns: [address], [place] ? ? ? Dressing Pressure ? ? P_nc Primary Band-aid Care Applied [place] ns: [address], [place] ? ? ? Initials hj ? ? P_nc Pr imary Care [place] ns: [address], [place] ? Venipuncture ? Location Right ? ? P _nc Primary Antecubi Care ernie [place] ns: [address], [place] ? ? ? Needle 21g ? ? P_nc Prim mario Vacutain Care er [place] ns: [address], [place] ? ? ? Number 1 ? ? P_nc Prim amrio of Care Attempts [place]a ns: [address], [place] ? ? ? Successf Yes ? ? P_nc Pr imary ul Care [place] ns: [address], [place] ? ? ? Dressing Pressure ? ? P_nc Primary Band-aid Care Applied [place] ns: [address], [place] ? ? ? Initials hj ? ? P_nc Pr imary Care [place] ns: [address], [place] ? Venipuncture ? Location Right ? ? P _nc Primary Antecubi Care ernie [place] ns: [address], [place] ? ? ? Needle 21g ? ? P_nc Prim mario Vacutain Care er [place] ns: [address], [place] ? ? ? Number 1 ? ? P_nc Prim mario of Care Attempts [place] r[place]a ns: [address], [place] ? ? ? Successf Yes ? ? P_nc Pr imary ul Care [place] ns: [address], [place] ? ? ? Dressing Pressure ? ? P_nc Primary Band-aid Care Applied [place] ge[place] ns: [address], [place] ? ? ? Initials hj ? ? P_nc Pr imary Care [place] ns: [address], [place] ? Venipuncture ? Location Right ? ? P _nc Primary Antecubi Care ernie [place] ns: [address], [place] ? ? ? Needle 21g ? ? P_nc Prim mario Vacutain Care er [place] ns: [address], [place] ? ? ? Number 1 ? ? P_nc Prim mario of Care Attempts [place] r[place]a ns: [address], [place] ? ? ? Successf Yes ? ? P_nc Pr imary ul Care [place] ns: [address], [place] ? ? ? Dressing Pressure ? ? P_nc Primary Band-aid Care Applied [place] ge[place] ns: [address], [place] ? ? ? Initials hj ? ? P_nc Pr imary Care [place] ns: [address], [place] ? Venipuncture ? Location Right ? ? P _nc Primary Antecubi Care ernie [place] ns: [address], [place] ? ? ? Needle 21g ? ? P_nc Prim mario Vacutain Care er [place]l e[place] ns: [address], [place] ? ? ? Number 1 ? ? P_nc Prim mario of Care Attempts [place]a ns: [address], [place] ? ? ? Successf Yes ? ? P_nc Pr imary ul Care [place]l [place] ns: [address], [place] ? ? ? Dressing Pressure ? ? P_nc Primary Band-aid Care Applied [place] ge[place] ns: [address], [place] ? ? ? Initials hj ? ? P_nc Pr imary Care [place]l [place] ns: [address], [place] ? Venipuncture ? Location Right ? ? P _nc Primary Antecubi Care ernie [place]l e[place] ns: [address], [place] ? ? ? Needle 21g ? ? P_nc Prim mario Vacutain Care er [place]l e[place] ns: [address], [place] ? ? ? Number 1 ? ? P_nc Prim mario of Care Attempts [place] rlea ns: [address], [place] ? ? ? Successf Yes ? ? P_nc Pr imary ul Care [place] ns: [address], [place] ? ? ? Dressing Pressure ? ? P_nc Primary Band-aid Care Applied [place] ge[place] ns: [address], [place] ? ? ? Initials kk ? ? P_nc Pr [place] Care [place] ns: [address], [place] Past Encounters 01/16/2021 Thrombocytopenic Disorder Mahendra Carbajal, DO: [address], [place] [address], Ph. 01/02/2021 Thrombocytopenic Disorder Mahendra Carbajal, DO: [address], [place] [address], Ph. 11/13/2020 Abdominal Pain Mahendra Melgozakins, DO: [address], [place] [address], Ph. 09/17/2020 Thrombocytopenic Disorder Mahendra Carbajal, DO: [address], [place] [address], Ph. 08/31/2020 Thrombocytopenic Disorder Mahendra Carbajal, DO: [address], [place] [address], Ph. 08/22/2020 Thrombocytopenic Disorder Mahendra Carbajal, DO: [address] [facility], [place] [address], Ph. 08/08/2020 Thrombocytopenic Disorder Mahendra Carbajal, DO: [address], [place] [address], Ph. 08/02/2020 Headache Mahendra Melgozakins, DO: [address], [place] [address], Ph. 07/31/2020 Elevated Blood-pressure Reading without Diagnosis of Hypertension; Headache; Obesity; Peripheral Nerve Disease; Hyperlipidemia; Drug-induced Constipation Mahendra Ibarra Danelle, DO: [address], [place] [address], Ph. 07/17/2020 Headache; Constipation; Dizziness; Essen tial Hypertension Mahendra Melgozakins, DO: [address], [place] [address], Ph. 07/05/2020 Marky Brown LPN: [address], [place] [address], Ph. 05/02/2020 Neuropathy; Low Back Pain; Vertigo Mahendra Carbajal, DO: [address], [place] [address], Ph. 02/09/2020 Marcelo Doston MD: [address] [place] [address], Ph. 01/24/2020 Neuropathy; Neck Pain Mahendra Carbajal DO: [address], [place] [address], Ph. 01/18/2020 Headache; Paresthesia Mahendra Carbajal DO: [address], [place] [address], Ph. 12/21/2019 Neuropathy; Headache; Insomnia; Obesity Mahendra Carbajal DO: [address], [place] [address], Ph. 12/14/2019 Headache; Insomnia Mahendra Carbajal DO: [address], [place] [address], Ph. 12/06/2019 Neutropenia Mahendra Carbajal DO: [address], [place] [address], Ph. 11/24/2019 Neutropenia; Family History of Prostate Cancer Mahendra Carbajal DO: [address], [place] [address], Ph. 11/23/2019 Obesity Mahendra Carbajal, DO: [address], [place] [address], Ph. 11/16/2019 Neutropenia; Elevated Blood Pressure Mahendra Carbajal DO: [address], [place] [address], Ph. 11/11/2019 Fatigue; Hypertensive Disorder; Neutrope christy Mahendra Carbajal DO: [address], [place] [address], Ph. Social History Tobacco Smoking Status Never Smoker Vaccine List None recorded. Plan of Care Reminders Provider Appointments None ? ? recorded. Lab None ? ? recorded. Referral None ? ? recorded. Procedures None ? ? recorded. Surgeries None ? ? recorded. Imaging None ? ? recorded. Vitals 11/13/2020 11:00AM Follow Up 20 Weight Blood Pressure 140.61 kg 124/80 mm[Hg] 07/31/2020 03:00PM Follow Up 20 Weight Blood Pressure 141.97 kg (1) 126/78 mm[Hg] (2) 118/80 mm[Hg] 07/17/2020 02:20PM Acute 20 Weight Blood Pressure 140.61 kg 120/84 mm[Hg] 05/02/2020 01:00PM Acute 20 Weight Blood Pressure 137.44 kg 120/88 mm[Hg] 01/24/2020 01:20PM Follow Up 20 Weight Blood Pressure 139.25 kg 142/84 mm[Hg] 01/18/2020 11:00AM Follow Up 20 Weight Blood Pressure 139.25 kg 140/94 mm[Hg] 12/21/2019 10:40AM Acute 20 Weight Blood Pressure 142.88 kg 128/84 mm[Hg] 12/14/2019 02:40PM Follow Up 40 Weight Blood Pressure 145.15 kg 134/84 mm[Hg] 11/24/2019 03:00PM Follow Up 20 Weight Blood Pressure 145.15 kg 120/82 mm[Hg] 11/16/2019 01:40PM Follow Up 20 Weight Blood Pressure 146.51 kg 128/80 mm[Hg] 11/11/2019 11:20AM Acute 20 Weight Blood Pressure 149.69 kg 140/96 mm[Hg] 06/28/2019 09:20AM Follow Up 20 Weight Blood Pressure 153.31 kg 148/84 mm[Hg] 03/22/2019 03:40PM Acute 20 Weight Blood Pressure 149.69 kg 146/94 mm[Hg] 12/29/2018 03:40PM Acute 20 Weight Blood Pressure 146.51 kg 142/90 mm[Hg] 06/11/2018 01:40PM Follow Up 20 Weight Blood Pressure 153.31 kg 142/86 mm[Hg] 05/21/2017 Height Weight Blood Pressure 182.88 cm 147.87 kg 140/90 mm[Hg] 10/29/2016 Height Weight Blood Pressure 182.88 cm 153.77 kg 146/96 mm[Hg] 09/10/2016 Weight Blood Pressure 152.86 kg 132/88 mm[Hg] 02/21/2016 Weight Blood Pressure 151.95 kg 136/86 mm[Hg] 01/18/2016 Weight Blood Pressure 154.22 kg 130/96 mm[Hg] 04/27/2015 Height Weight Blood Pressure 182.88 cm 152.41 kg 136/90 mm[Hg] 11/07/2014 Height Weight Blood Pressure 182.88 cm 147.42 kg 148/78 mm[Hg] 10/11/2014 Height Weight Blood Pressure 182.88 cm 147.42 kg 152/86 mm[Hg] 02/22/2014 Weight Blood Pressure 146.28 kg 148/94 mm[Hg] 05/08/2011 Height Weight Blood Pressure 182.88 cm 131.09 kg 130/80 mm[Hg] 04/24/2011 Height Weight Blood Pressure 182.88 cm 133.81 kg 140/80 mm[Hg] 08/10/2009 Height Weight Blood Pressure 182.88 cm 129.27 kg 130/80 mm[Hg]
[2021-04-18 16:12] LABS: Abs Immature Grans 0.01 10^3/uL (0.0-0.06); Absolute Basophil Count 0.06 10^3/uL (0.0-0.2); Absolute Eosinophil Count 0.15 10^3/uL (0.0-0.7); Absolute Lymphocyte Count 1.51 10^3/uL (1.2-3.4); Absolute Monocyte Count 0.86 10^3/uL (0.1-0.8); Absolute Neutrophil Count 4.71 10^3/uL (1.2-6.7); Basophils % 0.8; Eosinophils % 2.1; HCT 45.8 % (40.0-50.0); HGB 15.4 g/dL (13.5-17.5); Immature Grans % 0.1; Lymphocytes % 20.7; MCH 28.3 pg (27.0-33.0); MCHC 33.6 % (32.0-36.0); MCV 84.2 fL (80-95); MPV 10.6 fL (8.0-11.0); Monocytes % 11.8; Neutrophils % 64.5; Nucleated RBC 0 %; Platelet Count 93 10^3/uL (130-400); RBC 5.44 10^6/uL (4.36-5.78); RDW 12.2 % (11.8-14.1); RDW-SD 36.9 fL
== END 2021-04-18 02:21 | disposition home or self-care (01) ==
LOC: LBO 02:20
PROVIDERS: Visit Provider Internal Medicine
DX: D69.6 Thrombocytopenia, unspecified (principal); M79.10 Myalgia, unspecified site; D70.9 Neutropenia, unspecified
CPT/HCPCS: 36415; 85025

== ENCOUNTER 2021-05-22 04:04 | Outpatient (CLI) | payer MEDICAID, SELFPAY ==
[2021-05-22 08:52] LABS: Abs Immature Grans 0.02 10^3/uL (0.0-0.06); Absolute Basophil Count 0.06 10^3/uL (0.0-0.2); Absolute Eosinophil Count 0.21 10^3/uL (0.0-0.7); Absolute Lymphocyte Count 1.28 10^3/uL (1.2-3.4); Absolute Monocyte Count 0.74 10^3/uL (0.1-0.8); Absolute Neutrophil Count 3.55 10^3/uL (1.2-6.7); Eosinophils % 3.6; HCT 47.9 % (40.0-50.0); HGB 15.5 g/dL (13.5-17.5); Immature Grans % 0.3; Lymphocytes % 21.8; MCHC 32.4 % (32.0-36.0); MCV 86.5 fL (80-95); Monocytes % 12.6; Neutrophils % 60.7; Nucleated RBC 0 %; RBC 5.54 10^6/uL (4.36-5.78); RDW 12.4 % (11.8-14.1); RDW-SD 39.5 fL; WBC 5.86 10^3/uL (4.4-10.8)
[2021-05-22 09:24] LABS: Diff Comment Diff Reviewed; Platelet Count 92 10^3/uL (130-400); Polychromasia Present
== END 2021-05-22 04:05 | disposition home or self-care (01) ==
LOC: LBO 04:04
PROVIDERS: Nurse Practitioner Adult Health; Visit Provider Internal Medicine
DX: D69.3 Immune thrombocytopenic purpura (principal)
CPT/HCPCS: 36415; 85025

== ENCOUNTER 2021-06-25 02:11 | Outpatient (CLI) | payer MEDICAID, SELFPAY ==
[2021-06-25 16:36] LABS: Abs Immature Grans 0.04 10^3/uL (0.0-0.06); Absolute Basophil Count 0.05 10^3/uL (0.0-0.2); Absolute Eosinophil Count 0.44 10^3/uL (0.0-0.7); Absolute Lymphocyte Count 1.43 10^3/uL (1.2-3.4); Absolute Neutrophil Count 4.49 10^3/uL (1.2-6.7); Basophils % 0.7; Eosinophils % 6.1; HCT 44.3 % (40.0-50.0); HGB 14.6 g/dL (13.5-17.5); Immature Grans % 0.6; Lymphocytes % 19.7; MCH 28.5 pg (27.0-33.0); MCV 86.4 fL (80-95); MPV 11.4 fL (8.0-11.0); Neutrophils % 61.9; Nucleated RBC 0 %; Platelet Count 62 10^3/uL (130-400); RBC 5.13 10^6/uL (4.36-5.78); RDW 12.3 % (11.8-14.1); RDW-SD 39.2 fL; WBC 7.25 10^3/uL (4.4-10.8)
== END 2021-06-25 02:12 | disposition home or self-care (01) ==
LOC: LBO 02:11
PROVIDERS: Visit Provider Internal Medicine
DX: D70.9 Neutropenia, unspecified (principal); D69.6 Thrombocytopenia, unspecified; M79.10 Myalgia, unspecified site
CPT/HCPCS: 36415; 85025

== ENCOUNTER 2021-09-04 03:08 | Outpatient (CLI) | payer MEDICAID, SELFPAY ==
[2021-09-04 16:30] LABS: Abs Immature Grans 0.04 10^3/uL (0.0-0.06); Absolute Basophil Count 0.08 10^3/uL (0.0-0.2); Absolute Eosinophil Count 0.33 10^3/uL (0.0-0.7); Absolute Lymphocyte Count 1.73 10^3/uL (1.2-3.4); Absolute Monocyte Count 0.93 10^3/uL (0.1-0.8); Absolute Neutrophil Count 5.23 10^3/uL (1.2-6.7); HCT 44.7 % (40.0-50.0); HGB 14.8 g/dL (13.5-17.5); Immature Grans % 0.5; Lymphocytes % 20.7; MCH 28.4 pg (27.0-33.0); MCHC 33.1 % (32.0-36.0); MCV 85.8 fL (80-95); MPV 12.3 fL (8.0-11.0); Monocytes % 11.2; Neutrophils % 62.6; RBC 5.21 10^6/uL (4.36-5.78); RDW 12.3 % (11.8-14.1); RDW-SD 38.5 fL; WBC 8.34 10^3/uL (4.4-10.8)
[2021-09-04 17:40] LABS: Platelet Count 39 10^3/uL (130-400); RBC Morphology Normal
[2021-09-04 17:41] LABS: Diff Comment PLT Morph Reviewed
== END 2021-09-04 03:09 | disposition home or self-care (01) ==
LOC: LBO 03:08
PROVIDERS: Visit Provider Internal Medicine
DX: D70.8 Other neutropenia (principal); D69.6 Thrombocytopenia, unspecified
CPT/HCPCS: 36415; 85025

== ENCOUNTER 2022-06-17 15:36 | Outpatient (CLI) | payer MEDICAID, SELFPAY ==
[2022-06-17 11:32] LABS: Abs Immature Grans 0.03 10^3/uL (0.0-0.06); Absolute Basophil Count 0.06 10^3/uL (0.0-0.2); Absolute Eosinophil Count 0.45 10^3/uL (0.0-0.7); Absolute Lymphocyte Count 1.47 10^3/uL (1.2-3.4); Absolute Monocyte Count 1.13 10^3/uL (0.1-0.8); Absolute Neutrophil Count 5.68 10^3/uL (1.2-6.7); Basophils % 0.7; Eosinophils % 5.1; HCT 46.1 % (40.0-50.0); HGB 15.3 g/dL (13.5-17.5); Immature Grans % 0.3; Lymphocytes % 16.7; MCH 28.4 pg (27.0-33.0); MCHC 33.2 % (32.0-36.0); MCV 86 fL (80-95); MPV 11.9 fL (8.0-11.0); Monocytes % 12.8; Neutrophils % 64.4; RBC 5.38 10^6/uL (4.36-5.78); RDW 12.4 % (11.8-14.1); RDW-SD 38.7 fL; WBC 8.82 10^3/uL (4.4-10.8)
[2022-06-17 11:50] LABS: Diff Comment Diff Reviewed; Platelet Count 91 10^3/uL (130-400); RBC Morphology Normal
[2022-06-17 12:30] LABS: ALT 19 U/L (16-63); AST 14 U/L (15-37); Alkaline Phosphatase 72 U/L (46-116); Anion Gap 7.7 mmol/L (3-11); BUN 19 mg/dL (7-18); Bilirubin, Total 0.5 mg/dL (0.2-1.0); CO2 27.3 mmol/L (21.0-32.0); CREATININE 0.9 mg/dL (0.70-1.30); Calcium 9.5 mg/dL (8.5-10.1); Chloride 107 mmol/L (98-107); Estimated GFR 95.37 (mL/min/1.73m2); Glucose 88 mg/dL (74-106); Potassium 4.6 mmol/L (3.5-5.1); Sodium 142 mmol/L (136-145); Total Protein 7.3 g/dL (6.4-8.2)
== END 2022-06-17 15:37 | disposition home or self-care (01) ==
LOC: LBO 15:38
PROVIDERS: Visit Provider Internal Medicine
DX: D69.3 Immune thrombocytopenic purpura (principal); D70.8 Other neutropenia
CPT/HCPCS: 36415; 80053; 85025